=== PATIENT | male | born 1990 | race Hispanic/Latino ===

== ENCOUNTER 2022-01-29 20:32 | Emergency (ER) | payer SELFPAY ==
--- OUTSIDE RECORDS SUMMARY | 2022-01-29 20:35 | XMS REPORT | Continuity of Care Document ---
:[address] [facility] t Address [address] [place] [address] Care Team Providers Name Role Phone Pcp, Patient Does Not Have A Primary Care Physician [id number] Linda Almazan LVN Attending Clinician Unavailable Chloe Slaughter RN Attending Clinician Unavailable Provider, [facility] Attending Clinician Unavailable Doctor Unassigned, [place] Attending Clinician Unavailable Only, Darren Db Test Attending Clinician Unavailable Torri Fernandez Attending Clinician TORRI BULLARD Attending Clinician Unavailable Payers Payer Name Policy Type Policy Number Effective Date Expiration Date S ource Problems This patient has no known problems. Allergies, Adverse Reactions, Alerts Allergy Allergy Status Severity Reaction(s) Onset Inactive Treating Comm ents Source Name Type Date Date Clinician No Known DA Active U [facility] 12-06 [facility] 00:00: e [facility] NO KNOWN Drug Active [facility] ALLERGIE Class ity of [facility] Medical Branch Social History Social Habit Start Date Stop Date Quantity Comments Source Exposure to 2021-12-03 2021-12-13 Not sure [facility] SARS-CoV-2 (event) 00:00:00 12:13:00 Nataliaa mora Baer Sex Assigned At [birth year] [facility] 00:00:00 00:00:00 Medical Branch Smoking Status Start Date Stop Date Source Tobacco smoking consumption [facility] Branch Medications This patient has no known medications. Procedures This patient has no known procedures. Encounters Start End Encounter Admission Attending Care Care Encounter Source Date/Time Date/Time Type Type Clinicians Facility Department ID 2021-12-20 2021-12-20 Patient Almazan, [facility] [id number] Univers 00:00:00 00:00:00 Secure Msg Linda HEALTH [id number] [facility] [id number] Edgard as KAMALJIT?BLEA [id number] [facility] [address] MEDICAL OFFICE BUILDING 2021-12-14 2021-12-14 Letter AILEEN Slaughter [id number] Univers 00:00:00 00:00:00 (Out) Chloe [place] [id number] it y of HOSPITAL [id number] [place] as [phone] [address] 2021-12-14 2021-12-14 Telephone Provider, [facility] [id number] Univers 00:00:00 00:00:00 Ang Urgent HEALTH [id number] ity of Care [facility] [id number] Edgard as KAMALJIT?BLEA [id number] [address] MEDICAL OFFICE [facility] 2021-12-14 2021-12-14 Patient Doctor [facility] [id number] Univers 00:00:00 00:00:00 Secure Msg Unassigned, HEALTH [id number] ity of [place] [facility] [id number] Edgard as KAMALJIT?BLEA [id number] [facility] [address] MEDICAL OFFICE [facility] 2021-12-13 2021-12-13 Laboratory Only, Ang Db Test [facility] [id number] Univers 12:15:00 12:30:00 Only Omagreginai, Omayemi HEALTH [id number] ity of [facility] [id number] Edgard as KAMALJIT?BLEA [phone] [facility] [address] MEDICAL OFFICE BUILDING 2021-12-13 2021-12-13 Outpatient R LATISHAMARYANA, [facility] [id number] Univers 12:15:00 12:15:00 LATISHADANNA nanoy of [facility] 2021-12-13 2021-12-13 Telephone Only, Darren [facility] [id number] [facility] 00:00:00 00:00:00 Db Test HEALTH [id number] it y of [place] [id number] Edgard as KAMALJIT?BLEA [phone] Mo dical [address] MEDICAL OFFICE BUILDING Results Test Description Test Time Test Comments Results Result Comments Source GLUBED 2018-07-20 07:14:00 Test Item Value Reference Range Interpretation Comme nts GLUBED (test code = GLUBED) 99 mg/dL 74-106 N Performed by certified burn table operator at [facility] BASIC METABOLIC [id number] 12:09:00 Test Item Value Reference Range Interpretation Comments SODIUM (test code = 139 mmol/L 136-145 N NA) POTASSIUM (test code 3.7 mmol/L 3.5-5.1 N = K) CHLORIDE (test code = 105.0 mmol/L 98-107 N CL) CARBON DIOXIDE (test 26.0 mmol/L 21-32 N code = CO2) ANION GAP (test code 11.7 10-20 N = GAP) GLUCOSE (test code = 89 mg/dL 74-106 N GLU) BLOOD UREA NITROGEN 13 mg/dL 7-18 N (test code = BUN) GLOMERULAR FILTRATION > 60 mL/min >=60 Estima herve GFR by RATE (test code = using [place] fied MDRD GFR) formula.Chronic kidney disease is defined as eith er kidney damageor GFR <60 mL/min/1.73 m2 for >3 months. CREATININE (test code 1.00 mg/dL 0.7-1.3 N = CREAT) BUN/CREATININE RATIO 13.4 10-20 N (test code = BUN/CREA) CALCIUM (test code = 9.4 mg/dL 8.5-10.1 N CA) [id number] 12:09:00 Test Item Value Reference Range Interpretation Comments TROPONIN-I (test code = TROPI) <0.015 ng/mL 0-0.045 N BASIC METABOLIC [id number] 12:00:00 Test Item Value Reference Range Interpretation Comments SODIUM (test code = NA) 139 mmol/L 136-145 N POTASSIUM (test code = K) 3.7 mmol/L 3.5-5.1 N CHLORIDE (test code = CL) 105.0 mmol/L 98-107 N CARBON DIOXIDE (test code = CO2) mmol/L 21-32 ANION GAP (test code = GAP) 10-20 GLUCOSE (test code = GLU) mg/dL 74-106 BLOOD UREA NITROGEN (test code = mg/dL 7-18 BUN) GLOMERULAR FILTRATION RATE (test mL/min >=60 code = GFR) CREATININE (test code = CREAT) mg/dL 0.7-1.3 BUN/CREATININE RATIO (test code 10-20 = BUN/CREA) CALCIUM (test code = CA) mg/dL 8.5-10.1 [id number] 12:00:00 Test Item Value Reference Range Interpretation Comments TROPONIN-I (test code = TROPI) ng/mL 0-0.045 CBC W/O [id number] 11:55:00 Test Item Value Reference Range Interpretation Comments WHITE BLOOD CELL (test code = 9.3 K/mm3 4.5-12.5 N WBC) RED BLOOD CELL (test code = 5.81 mill/mm3 4.0-5.8 H RBC) HEMOGLOBIN (test code = HGB) 16.2 gram/dL 13.0-17.5 N HEMATOCRIT (test code = HCT) 49.7 % 42.0-52.0 N MEAN CELL VOLUME (test code = 85.5 fL 80-98 N MCV) MEAN CELL HGB (test code = MCH) 27.9 picogram 27.0-33.0 N MEAN CELL HGB CONCETRATION 32.6 gram/dL 33.0-36.0 L (test code = MCHC) RED CELL DISTRIBUTION WIDTH 13.4 % 11.6-16.2 N (test code = RDW) PLATELET COUNT (test code = 280 K/mm3 150-450 N PLT) MEAN PLATELET VOLUME (test code 11.9 fL 6.7-11.0 H = MPV) CBC W/O [id number] 11:48:00 Test Item Value Reference Range Interpretation Comments WHITE BLOOD CELL (test code = K/mm3 4.5-12.5 WBC) RED BLOOD CELL (test code = RBC) mill/mm3 4.0-5.8 HEMOGLOBIN (test code = HGB) 16.2 gram/dL 13.0-17.5 N HEMATOCRIT (test code = HCT) 49.7 % 42.0-52.0 N MEAN CELL VOLUME (test code = fL 80-98 MCV) MEAN CELL HGB (test code = MCH) picogram 27.0-33.0 MEAN CELL HGB CONCETRATION (test gram/dL 33.0-36.0 code = MCHC) RED CELL DISTRIBUTION WIDTH % 11.6-16.2 (test code = RDW) PLATELET COUNT (test code = PLT) K/mm3 150-450 MEAN PLATELET VOLUME (test code fL 6.7-11.0 = MPV)
[2022-01-29 21:25] LABS: Absolute Lymphocytes (CBC) 1.7 K/uL (0.7-4.9); Hematocrit 45.1 % (39.6-49.0); Lymphocytes % 19.5 % (15.3-44.8); MCV 83.1 fL (80-100); MPV 9.7 fL (7.6-11.3); RBC Red Blood Cell Count 5.43 M/uL (4.33-5.43)
[2022-01-29 21:31] LABS: Protime INR 1.09
[2022-01-29 21:44] LABS: ALT/SGPT 60 U/L (12-78); AST/SGOT 26 U/L (15-37); Albumin 3.9 g/dL (3.4-5.0); Alkaline Phosphatase 50 U/L (45-117); BUN Blood Urea Nitrogen 16 mg/dL (7-18); Bicarbonate 29 mmol/L (21-32); Bilirubin Total 0.2 mg/dL (0.2-1.0); Glomerular Filtration Rate 72 ml/min (=/>90); Glucose Level 119 mg/dL (74-106); Magnesium 2.1 mg/dL (1.8-2.4); NT PRO-BNP 22 pg/mL (<125); Potassium 3.6 mmol/L (3.5-5.1); Protein, Total 7.5 g/dL (6.4-8.2); Sodium Level 140 mmol/L (136-145)
--- NOTE | 2022-01-29 21:45 | RAD REPORT ---
EXAM DESCRIPTION: RAD - Chest Single View - 01/29/2022 9:32 pm CLINICAL HISTORY: CHEST PAIN COMPARISON: None TECHNIQUE: AP portable chest image was obtained 01/29/2022 9:32 pm . FINDINGS: Lungs are clear. Heart and vasculature are normal. No measurable pleural effusion and no p neumothorax. No acute bony abnormality seen. No acute aortic findings suspected. IMPRESSION: No acute cardiopulmonary process.
[2022-01-29 21:59] LABS: Bilirubin Direct < 0.1 mg/dL (0-0.2); Troponin High Sensitivity < 3.0 pg/mL (<58.9)
--- NOTE | 2022-01-30 00:34 | ER ---
Nurse's Notes [facility] Name: Jacobo Danielson Age: 31 yrs Sex: Male : 1990 Arrival Date: 01/29/2022 Time: 20:35 Bed 7 Private MD: Diagnosis: Chest pain, unspecified Presentation: 01/29 20:37 Chief complaint: Intermittent sharp left sided chest pain that started approx 2 hours hb ago while picking up house. Denies SOB/nausea/cough. Coronavirus screen: At this time, the client does not indicate any symptoms associated with coronavirus-19. Ebola Screen: No symptoms or risks identified at this time. Initial Sepsis Screen: Does the patient meet any 2 criteria? No. Patient's initial sepsis screen is negative. Does the patient have a suspected source of infection? No. Patient's initial sepsis screen is negative. Risk Assessment: Do you want to hurt yourself or someone else? Patient reports no desire to harm self or others. Onset of symptoms was January 29, 2022. 20:37 Method Of Arrival: Ambulatory hb 20:37 Acuity: EMMA 3 hb Historical: - Allergies: 20:39 No Known Allergies; hb - Home Meds: 20:39 None [Active]; hb - PMHx: 20:39 None; hb - PSHx: 20:39 None; hb - Immunization history:: Adult Immunizations up to date. - Social history:: Smoking status: Patient denies any tobacco usage or history of. Screenin:01 Abuse screen: Denies threats or abuse. Nutritional screening: No deficits noted. kl Tuberculosis screening: No symptoms or risk factors identified. Fall Risk None identified. Assessment: 20:50 General: Appears in no apparent distress. comfortable, Behavior is calm, cooperative, jb4 appropriate for age. Pain: Complains of pain in chest Pain does not radiate. Pain currently is 0 out of 10 on a pain scale. Quality of pain is described as sharp, Pain began 2 hours ago. Neuro: Level of Consciousness is awake, alert, obeys commands. Cardiovascular: Patient's skin is warm and dry. Respiratory: Airway is patent Respiratory effort is even, unlabored, Respiratory pattern is regular, symmetrical. Derm: Skin is intact, Skin is pink, warm \T\ dry. Musculoskeletal: Circulation, motion, and sensation intact. Range of motion: intact in all extremities. 21:27 Reassessment: Patient appears in no apparent distress at this time. Patient and/or jb4 family updated on plan of care and expected duration. Pain level reassessed. Patient is alert, oriented x 3, equal unlabored respirations, skin warm/dry/pink. Pt denies having and needs or concerns at this time. 23:00 Reassessment: Patient appears in no apparent distress at this time. Patient and/or jb4 family updated on plan of care and expected duration. Pain level reassessed. Patient is alert, oriented x 3, equal unlabored respirations, skin warm/dry/pink. 01/30 00:06 Reassessment: Patient appears in no apparent distress at this time. Patient and/or jb4 family updated on plan of care and expected duration. Pain level reassessed. Patient is alert, oriented x 3, equal unlabored respirations, skin warm/dry/pink. Vital Signs: 01/29 20:37 BP 182 / 105; Pulse 98; Resp 20; Temp 98.3(O); Pulse Ox 100% on R/A; Weight 90.72 kg; hb Height 5 ft. 8 in. (172.72 cm); Pain 0/10; 21:28 BP 145 / 100; Pulse 87; Resp 24; Pulse Ox 100% ; jb4 22:00 BP 140 / 86; Pulse 82; Resp 16; Pulse Ox 99% on R/A; Pain 0/10; kl 23:15 BP 150 / 88; Pulse 85; Resp 19; Pulse Ox 97% on R/A; jb4 01/30 00:00 BP 118 / 82; Pulse 86; Resp 16; Pulse Ox 99% on R/A; jb4 00:46 BP 130 / 87; Pulse 87; Resp 18; Pulse Ox 98% on R/A; Pain 0/10; kl 01/29 20:37 Body Mass Index 30.41 (90.72 kg, 172.72 cm) hb ED Course: 01/29 20:35 Patient arrived in ED. as 20:39 Triage completed. hb 20:39 Arm band placed on. hb 20:40 Damon Bernardo PA is PHCP. [facility] 20:40 Darshan Ortiz MD is Attending Physician. [facility] 21:33 XRAY Chest (1 view) In Process Unspecified. EDMS 21:35 Inserted saline lock: 20 gauge in right antecubital area, using aseptic technique. kl 22:01 No provider procedures requiring assistance completed. kl 22:30 No apparent distress. Resting quietly. kl 23:14 Basilio Blanchard, RN is Primary Nurse. jb4 01/30 00:48 Client placed on continuous cardiac and pulse oximetry monitoring. NIBP monitoring kl applied. 00:48 Patient has correct armband on for positive identification. kl 00:48 IV discontinued, intact, bleeding controlled, No redness/swelling at site. Pressure kl dressing applied. 00:48 Patient maintains SpO2 saturation greater than 95% on room air. kl Administered Medications: No medications were administered Medication: 00:48 VIS not applicable for this client. Outcome: 00:33 Discharge ordered by . shashank 00:47 Discharged to home ambulatory. kl 00:47 Condition: good 00:47 Discharge instructions given to patient, Instructed on discharge instructions, follow up and referral plans. Demonstrated understanding of instructions, follow-up care. 00:48 Patient left the ED. Signatures: Dispatcher [employer] Melissa Day, RN RN Damon Bowers PA PA jmm Martinez, Amelia as Naty Jiang RN RN Basilio Blanchard, JOY RN jb4 Corrections: (The following items were deleted from the chart) 01/29 20:40 20:37 Pulse 98bpm; Resp 20bpm; Pulse Ox 100% RA; Temp 98.3F Oral; 90.72 kg; Height 5 hb ft. 8 in.; BMI: 30.4; Pain 0/10; hb
--- NOTE | 2022-01-30 00:34 | EDPHYS ---
Physician Documentation [facility] Name: Jacobo Danielson Age: 31 yrs Sex: Male : 1990 Arrival Date: 01/29/2022 Time: 20:35 Bed 7 Private MD: ED Physician Darshan Ortiz HPI: 01/29 20:39 This 31 yrs old Male presents to ER via Ambulatory with complaints of Chest jmm Pain. 20:39 The patient or guardian reports chest pain that is located primarily in the substernal jm area. The pain does not radiate. Associated signs and symptoms: Pertinent negatives: abdominal pain, dizziness, headache, lower extremity swelling, shortness of breath. The chest pain is described as sharp. Duration: The patient or guardian reports multiple episodes, the episodes last approximately 2 second(s). Is a 31-year-old male with no chronic medical conditions presents emerged department with complaints of left-sided chest pain which he states is sharp and will radiate across the left side of his chest. Lasted for approximately a few seconds at a time. Denies shortness of breath.. Historical: - Allergies: 20:39 No Known Allergies; hb - Home Meds: 20:39 None [Active]; hb - PMHx: 20:39 None; hb - PSHx: 20:39 None; hb - Immunization history:: Adult Immunizations up to date. - Social history:: Smoking status: Patient denies any tobacco usage or history of. ROS: 20:39 Constitutional: Negative for fever, chills, and weight loss. jmm 20:39 Cardiovascular: Positive for chest pain. 20:39 All other systems are negative. Exam: 20:39 Constitutional: This is a well developed, well nourished patient who is awake, alert, jmm and in no acute distress. Head/Face: atraumatic. Eyes: EOMI, no conjunctival erythema appreciated ENT: Moist Mucus Membranes Neck: Trachea midline, Supple Chest/axilla: Normal chest wall appearance and motion. Cardiovascular: Regular rate and rhythm. No edema appreciated Respiratory: Normal respirations, no respiratory distress appreciated Abdomen/GI: Non distended Back: Normal ROM Skin: General appearance color normal MS/ Extremity: Moves all extremities, no obvious deformities appreciated, no edema noted to the lower extremities Neuro: Awake and alert Psych: Behavior is normal, Mood is normal, Patient is cooperative and pleasant 22:18 ECG was reviewed by the Attending Physician. [facility] Vital Signs: 20:37 BP 182 / 105; Pulse 98; Resp 20; Temp 98.3(O); Pulse Ox 100% on R/A; Weight 90.72 kg; hb Height 5 ft. 8 in. (172.72 cm); Pain 0/10; 21:28 BP 145 / 100; Pulse 87; Resp 24; Pulse Ox 100% ; jb4 22:00 BP 140 / 86; Pulse 82; Resp 16; Pulse Ox 99% on R/A; Pain 0/10; kl 23:15 BP 150 / 88; Pulse 85; Resp 19; Pulse Ox 97% on R/A; jb4 01/30 00:00 BP 118 / 82; Pulse 86; Resp 16; Pulse Ox 99% on R/A; jb4 00:46 BP 130 / 87; Pulse 87; Resp 18; Pulse Ox 98% on R/A; Pain 0/10; kl 08 20:37 Body Mass Index 30.41 (90.72 kg, 172.72 cm) hb MDM: 01/29 20:53 Patient medically screened. [facility] 01/30 00:33 Data reviewed: vital signs, nurses notes. ED course: PERC score negative. Heart score [facility] is 1.. 01/29 20:54 Order name: Basic Metabolic Panel; Complete Time: 22:03 [facility] 01/29 20:54 Order name: CBC with Diff; Complete Time: 21:29 [facility] 01/29 20:54 Order name: LFT's; Complete Time: 22:03 [facility] 01/29 20:54 Order name: Magnesium; Complete Time: 22:03 [facility] 01/29 20:54 Order name: NT PRO-BNP; Complete Time: 22:03 [facility] 01/29 20:54 Order name: PT-INR; Complete Time: 21:32 [facility] 01/29 20:54 Order name: Troponin HS; Complete Time: 22:03 [facility] 01/29 20:54 Order name: XRAY Chest (1 view); Complete Time: 21:48 [facility] 01/29 20:54 Order name: EKG; Complete Time: 20:55 [facility] 01/29 20:54 Order name: Cardiac monitoring; Complete Time: 21:24 [facility] 01/29 20:54 Order name: EKG - Nurse/Tech; Complete Time: : [facility] 01/29 20:54 Order name: IV Saline Lock; Complete Time: [facility] 01/29 20:54 Order name: Labs collected and sent; Complete Time: [facility] 01/29 22:46 Order name: Troponin High Sensitivity: repeat now; Complete Time: 00:31 [facility] 01/29 20:54 Order name: O2 Per Protocol; Complete Time: : [facility] 01/29 20:54 Order name: O2 Sat Monitoring; Complete Time: : [facility] EC/20 22:18 Rate is 83 beats/min. Rhythm is regular. [place] interval is normal. QRS interval is normal. jmm QT interval is normal. No Q waves. T waves are Normal. No ST changes noted. Reviewed by me. Administered Medications: No medications were administered Disposition: 01/30 02:36 Co-signature as Attending Physician, Darshan Ortiz MD I agree with the assessment and kdr plan of care. Disposition Summary: 01/30/22 00:33 Discharge Ordered Location: Home [facility] Condition: Stable [facility] Diagnosis - Chest pain, unspecified jmm Followup: [facility] - With: Private Physician - When: 2 - 3 days - Reason: Recheck today's complaints, Continuance of care, Re-evaluation by your physician Discharge Instructions: - Discharge Summary Sheet jmm - Nonspecific Chest Pain, Adult jmm Forms: - Medication Reconciliation Form jmm - Thank You Letter jmm - Antibiotic Education jmm - Prescription Opioid Use [facility] Signatures: Dispatcher [employer] Darshan Whitfield MD MD kdr Mickail, Joel, PA PA m aNty Jiang, RN RN
[2022-01-30 04:32] VITALS: TEMP 98.3
[2022-01-30 04:52] VITALS: BP 130/87; O2SAT 98
--- NOTE | 2022-01-31 08:11 | EKG ---
Test Date: 2022-01-29 Test Time: 20:54:35 Tip Stitcher: HB MEASUREMENT RESULTS: Intervals: Rate: 83 AR: 146 QRSD: 96 QT: 358 QTc: 420 [place]: P: 68 AR: 146 QRS: 78 T: 56 INTERPRETIVE STATEMENTS: Normal sinus rhythm Incomplete right bundle branch block Borderline ECG No previous ECG available for comparison Electronically Signed On 01-31-22 08:06:42 CDT by Philip Pettit
== END 2022-01-30 00:48 | disposition home or self-care (01) ==
LOC: ER 20:32
DX: R07.89 Other chest pain (principal)
CPT/HCPCS: 36415; 71045; 80048; 80076; 83735; 83880; 84484; 85025; 85610; 93005; 99284